=== PATIENT | female | born 1990 | race Caucasian/White ===

== ENCOUNTER 2018-01-29 12:03 | Emergency (ER) | payer OTHER ==
[~2018-01-29 12:03] MED LIST: HYDR-4309 PO
[2018-01-29] MEDS ORDERED: MINO100C27 PO (12:11)
--- NOTE | 2018-01-29 12:20 | ER Report ---
History and Physical Time Seen By MD: 12:19 Hx. of Stated Complaint: PT HAD SURGERY ON RIGHT ANKLE LAST SATURDAY. PT OUT OF PAIN MEDS AND CANNOT GET A HOLD OF [facility]. PT IN PAIN. HPI/ROS CHIEF COMPLAINT: Right ankle pain HISTORY OF PRESENT ILLNESS: Patient is a 27 y.o. female s/p right ankle surgery. She c/o of burning pain in the wrapped ankle with tingling and burning on the plantar surface of her foot. She had the surgery on 01/23/18 and used 8 tabs of [place] per day to control pain. She is now out of narcotic pain medication and had been alternating 800 mg of Ibuprofen and 500 mg of Tylenol without successfully controlling pain. She continues to use cold application and elevation which provide mild relief. Of note, the pt became unbalanced while ambulating on her scooter and used her right leg to catch her balance on Saturday. She has contacted [facility] and they have mailed a script that she should receive today. Allergies: Coded Allergies: No Known Drug Allergies (Unverified , 01/29/18) Home Meds Active Scripts Hydrocodone Bit/Acetaminophen (HYDROCODON-ACETAMINOPHEN 5-325) 1 Each Tablet, 1 EACH PO Q4-6H Y for PAIN, #6 TAB Prov:ARIC SHANNON 01/29/18 Reported Medications Minocycline Hcl (MINOCYCLINE HCL) 100 Mg Capsule, 100 MG PO BID, CAPSULE 01/29/18 Discontinued Scripts Hydrocodone Bit/Acetaminophen (NORCO 5-325 TABLET) 1 Each Tablet, 1 EACH PO Q4- 6H Y for PAIN, #12 TAB Prov:ARIC SHANNON 12/03/16 Past Medical/Surgical History right ankle surgery 01/23/18 Hx Substance Use Disorder: No Constitutional Vital Sign - Last 24 Hours 01/29/18 01/29/18 01/29/18 01/29/18 12:07 12:07 12:15 12:18 Temp 98.2 Pulse 80 77 Resp 18 B/P (MAP) 140/91 (107) 140/91 112/75 (87) Pulse Ox 95 93 O2 Delivery Room Air 01/29/18 01/29/18 01/29/18 01/29/18 12:30 12:33 12:45 13:00 Pulse 77 B/P (MAP) 113/80 (91) 119/84 (96) 121/63 (82) Pulse Ox 95 01/29/18 01/29/18 01/29/18 01/29/18 13:05 13:15 13:20 13:30 Pulse 67 72 B/P (MAP) 119/79 (92) 104/75 (85) Pulse Ox 95 94 01/29/18 01/29/18 13:35 13:45 Pulse 70 B/P (MAP) 113/77 (89) Pulse Ox 95 Physical Exam General: calm and appropriately dressed. Resp: Lung sounds clear and equal bilaterally. Cardiovascular: RRR, no murmurs, gallops, or rubs. Skin pink with <3 sec capillary refill. Musculoskeletal: Toes nontender with ROM restricted by splint. Neuro: Sensation intake. Differentials considered: Cellulitis, DVT, neuritis, compartment syndrome, post- surgical pain. Medical Decision Making Data Points Result Diagram: 01/29/18 1316 Laboratory Hematology Test 01/29/18 13:16 Red Blood Count 4.80 M/uL (4.17-5.56) Mean Corpuscular Volume 89.5 fL (80.0-96.0) Mean Corpuscular Hemoglobin 31.9 pg (26.0-33.0) Mean Corpuscular Hemoglobin Concent 35.7 g/dL (32.0-36.0) Red Cell Distribution Width 12.7 % (11.5-14.5) Mean Platelet Volume 8.3 fL (7.2-11.1) Neutrophils (%) (Auto) 71.7 % (39.4-72.5) Lymphocytes (%) (Auto) 16.6 % (17.6-49.6) Monocytes (%) (Auto) 9.9 % (4.1-12.4) Eosinophils (%) (Auto) 1.3 % (0.4-6.7) Basophils (%) (Auto) 0.5 % (0.3-1.4) Nucleated RBC Relative Count (auto) 0.0 /100WBC Neutrophils # (Auto) 7.1 K/uL (2.0-7.4) Lymphocytes # (Auto) 1.6 K/uL (1.3-3.6) Monocytes # (Auto) 1.0 K/uL (0.3-1.0) Eosinophils # (Auto) 0.1 K/uL (0.0-0.5) Basophils # (Auto) 0.1 K/uL (0.0-0.1) Nucleated RBC Absolute Count (auto) 0.00 K/uL Chemistry Test 01/29/18 13:16 White Blood Count 9.9 k/uL (4.5-11.0) Red Blood Count 4.80 M/uL (4.17-5.56) Hemoglobin 15.3 g/dL (12.0-16.0) Hematocrit 43.0 % (34.0-47.0) Mean Corpuscular Volume 89.5 fL (80.0-96.0) Mean Corpuscular Hemoglobin 31.9 pg (26.0-33.0) Mean Corpuscular Hemoglobin Concent 35.7 g/dL (32.0-36.0) Red Cell Distribution Width 12.7 % (11.5-14.5) Platelet Count 272 K/uL (150-450) Mean Platelet Volume 8.3 fL (7.2-11.1) Neutrophils (%) (Auto) 71.7 % (39.4-72.5) Lymphocytes (%) (Auto) 16.6 % (17.6-49.6) Monocytes (%) (Auto) 9.9 % (4.1-12.4) Eosinophils (%) (Auto) 1.3 % (0.4-6.7) Basophils (%) (Auto) 0.5 % (0.3-1.4) Nucleated RBC Relative Count (auto) 0.0 /100WBC Neutrophils # (Auto) 7.1 K/uL (2.0-7.4) Lymphocytes # (Auto) 1.6 K/uL (1.3-3.6) Monocytes # (Auto) 1.0 K/uL (0.3-1.0) Eosinophils # (Auto) 0.1 K/uL (0.0-0.5) Basophils # (Auto) 0.1 K/uL (0.0-0.1) Nucleated RBC Absolute Count (auto) 0.00 K/uL ED Course/Re-evaluation ED Course Patient admit to exam room and H&P was obtained. Patient has significant amount of pain since running out of [place] after right ankle surgery. No decrease in capillary refill noted. Leg is immobilized and dressed due to surgery.Differential dx were considered. Patient provided with Lortab for pain. CBC w/ diff drawn and WNL. Patient responded favorably to Lortab and discharged with script for #6 [place]. She will followed up with [facility]. Decision to Disposition Date: Jan 29, 2018 Decision to Disposition Time: 13:39 Depart Departure Latest Vital Signs Vital Signs Date Time Temp Pulse Resp B/P (MAP) Pulse Ox O2 Delivery O2 Flow Rate FiO2 01/29/18 13:45 113/77 (89) 01/29/18 13:35 70 95 01/29/18 12:07 98.2 18 Room Air Impression: Primary Impression: Acute right ankle pain Condition: Improved Disposition: HOME OR SELF-CARE Referrals: NARCISO PERKINS (PCP) New Scripts Hydrocodone Bit/Acetaminophen (HYDROCODON-ACETAMINOPHEN 5-325) 1 Each Tablet 1 EACH PO Q4-6H Y for PAIN, #6 TAB Prov: ARIC SHANNON 01/29/18 Patient Instructions: GENERAL ER DISCHARGE INSTRUCTIONS Additional Instructions: Your pain is the result of your surgery and not a complication such as infection. Continue using cold application and elevated the extremity at home. A script for 6 tabs of [place] has been provided to manage your pain until the script from your [facility] provider arrives. Follow-up with your [facility] provider as directed. Return is condition worsens. ARIC SHANNON Jan 29, 2018 12:20
[2018-01-29] MEDS ORDERED: APAP/HYDROCODONE 325/5 TAB PO ONE (12:40)
[2018-01-29 13:24] LABS: PLATELET COUNT, AUTOMATED 272 K/uL (150-450)
[2018-01-29] MEDS ORDERED: HYDR-385 PO (13:39)
[2018-01-29 13:45] VITALS: BP 113/77
== END 2018-01-29 13:50 | disposition home or self-care (01) ==
LOC: ER 12:10
DX: M25.571 Pain in right ankle and joints of right foot (principal)
CPT/HCPCS: 36415; 85025; 99283

== ENCOUNTER → 2018-05-01 | Outpatient (CLI) | payer OTHER ==
[~2018-05-01] MED LIST changes: +HYDR-385 PO; +MINO100C27 PO
--- NOTE | 2018-05-01 15:11 | RADIOLOGY IMAGING REPORT ---
FACILITY: [facility] PATIENT NAME: Eliane Hills : 1990 MR: [id number] V: [id number] EXAM DATE: ORDERING PHYSICIAN: HALEY FELIZ TECHNOLOGIST: Location: [facility] Patient: Eliane Hills : 1990 Visit/Account:[id number] Date of Sevice: 05/01/2018 ANKLE 3 VIEW MIN LEFT, FOOT 3 VIEW LEFT Indication: Pain at base of fifth metatarsal, bruising over the entire lateral foot. Comparison: None. Findings: Left ankle: Distal tibia, distal fibula, and the talus demonstrate normal mineralization and alignmen t. The mortise is preserved. Calcaneus is intact. Soft tissues are normal. Left foot: Bones of the foot are intact. Joint spaces smooth. Soft tissues are normal. IMPRESSION: Normal left ankle and normal left foot radiograph. No evidence of fracture. Report Dictated By: Mark Olson at 05/01/2018 3:05 PM Report E-Signed By: Mark Olson at 05/01/2018 3:07 PM WSN:[email or web address]
--- NOTE | 2018-05-01 15:11 | RADIOLOGY IMAGING REPORT ---
FACILITY: [facility] [place] PATIENT NAME: Eliane Hills : 1990 MR: [id number] V: [id number] EXAM DATE: ORDERING PHYSICIAN: HALEY FELIZ TECHNOLOGIST: Location: [facility] Patient: Eliane Hills : 1990 Visit/Account:[id number] Date of Sevice: 05/01/2018 ANKLE 3 VIEW MIN LEFT, FOOT 3 VIEW LEFT Indication: Pain at base of fifth metatarsal, bruising over the entire lateral foot. Comparison: None. Findings: Left ankle: Distal tibia, distal fibula, and the talus demonstrate normal mineralization and alignmen t. The mortise is preserved. Calcaneus is intact. Soft tissues are normal. Left foot: Bones of the foot are intact. Joint spaces smooth. Soft tissues are normal. IMPRESSION: Normal left ankle and normal left foot radiograph. No evidence of fracture. Report Dictated By: Mark Olson at 05/01/2018 3:05 PM Report E-Signed By: Mark Olson at 05/01/2018 3:07 PM WSN:[email or web address]
== END ==
LOC: RAD 08:12
PROVIDERS: ATTEND Chiropractor
DX: M25.572 Pain in left ankle and joints of left foot (principal)